=== PATIENT | male | born 1965 | race Hispanic/Latino ===

== ENCOUNTER 2017-06-18 15:23 | Inpatient (IN) | payer MEDICAID ==
[2017-06-18 17:03] LABS: BASO # 0.1 K/uL (0.0-0.2); BASO % 0.8 % (0.0-2.0); EOS # 0.5 K/uL (0.0-0.7); EOS % 5.7 % (0.0-4.0); HEMATOCRIT 45.3 % (35.0-51.0); LYMPH # 2.2 K/uL (1.0-4.3); LYMPH % 25.1 % (20.0-40.0); MEAN CORPUSCULAR HEMOGLOBIN 30.5 pg (27.0-31.0); MEAN CORPUSCULAR HGB CONC 33.9 g/dL (33.0-37.0); MEAN PLATELET VOLUME 7.8 fL (7.2-11.7); MONO # 0.8 K/uL (0.0-0.8); MONO % 9.3 % (0.0-10.0); NRBC % 0.1 % (0.0-2.0); RED CELL DISTRIBUTION WIDTH 13.8 % (11.5-14.5); WHITE BLOOD COUNT 8.7 K/uL (4.8-10.8)
[2017-06-18 17:15] LABS: RBC URINE 1 /hpf (0-3); URINE BILIRUBIN NEGATIVE (NEGATIVE); URINE BLOOD NEGATIVE (NEGATIVE); URINE COLOR Yellow (YELLOW); URINE GLUCOSE (UA) NORMAL (Normal); URINE KETONE TRACE mg/dL (NEGATIVE); URINE LEUKOCYTE ESTERASE NEG Leu/uL (Negative); URINE PROTEIN NEGATIVE (NEGATIVE); URINE UROBILINOGEN NORMAL mg/dL (0.2-1.0); WBC URINE 1 /hpf (0-5)
[2017-06-18 17:18] LABS: ALB/GLOB RATIO 1.3 (1.0-2.1); ALCOHOL SERUM < 10 mg/dl (0-10); ALKALINE PHOSPHATASE 93 U/L (38-126); ALT/SGPT 69 U/L (21-72); AST/SGOT 57 U/L (17-59); BILIRUBIN,TOTAL 0.6 mg/dL (0.2-1.3); BLOOD UREA NITROGEN 22 mg/dL (9-20); CALCIUM 8.7 mg/dl (8.6-10.4); CARBON DIOXIDE 27 mmol/L (22-30); CHLORIDE 99 mmol/L (98-107); GFR AFRICAN-AMERICAN > 60; GLUCOSE,RANDOM 92 mg/dL (75-110); POTASSIUM 4.5 mmol/L (3.6-5.2); SODIUM 135 mmol/L (132-148); TOTAL PROTEIN 6.9 g/dL (6.3-8.3)
[2017-06-18 18:14] VITALS: RESP 18
--- NOTE | 2017-06-18 19:02 | C.PDOC ---
History Of Present Illness 51 year old male with Hx of heroin abuse presents to the ED for detox, patient was pleasant and cooperative. Patient was prescreened before arriving to the ED , he admits to using 10-20 bags a day and his last use was [employer]. Otherwise, Patient denies any associated complaints. Time Seen by Provider: 06/18/17 16:43 Chief Complaint (Nursing): Substance Abuse History Per: Patient History/Exam Limitations: intoxication Onset/Duration Of Symptoms: Hrs Current Symptoms Are (Timing): Still Present Suicide/Self Injury Attempted (Context): None Modifying Factor(s): Other (Heroin) Associated Symptoms: denies: Suicidal Thoughts, Suicidal Plan Involuntary Hold By: None Recent travel outside of the [place]: No Additional History Per: Patient Past Medical History Reviewed: Historical Data, Nursing Documentation, Vital Signs Vital Signs: Last Vital Signs Temp 98.6 F 06/18/17 19:48 Pulse 80 06/18/17 19:48 Resp 18 06/18/17 19:48 BP 118/77 06/18/17 19:48 Pulse Ox 99 06/18/17 19:48 - Medical History PMH: No Chronic Diseases Denies: Diabetes, Hepatitis, HIV, HTN, Seizures, Sexually Transmitted Disease Surgical History: No Surg Hx Family History: States: Unknown Family Hx - Social History Hx Alcohol Use: Yes Hx Substance Use: Yes - Immunization History Hx Tetanus Toxoid Vaccination: Yes Hx Influenza Vaccination: No Hx Pneumococcal Vaccination: No Review Of Systems Constitutional: Negative for: Fever, Chills Cardiovascular: Negative for: Chest Pain, Palpitations Respiratory: Negative for: Cough, Shortness of Breath Gastrointestinal: Negative for: Nausea, Vomiting, Abdominal Pain Musculoskeletal: Negative for: Back Pain Skin: Negative for: Rash Neurological: Negative for: Weakness, Numbness Psych: Negative for: Suicidal ideation Physical Exam - Physical Exam Appears: Other (Tall, white male) Skin: Normal Color, Warm, Dry, No Other (No track layne) Head: Atraumatic, Normacephalic Eye(s): bilateral: Other (Pin point) Nose: No Discharge, No Deformity Oral Mucosa: Moist, No Drooling Throat: Normal, No Erythema, No Exudate Neck: Normal ROM, Supple Chest: Symmetrical Cardiovascular: Rhythm Regular, No Murmur Respiratory: Normal Breath Sounds, No Rales, No Rhonchi, No Wheezing Gastrointestinal/Abdominal: Soft, No Tenderness, No Guarding, No Rebound Back: No CVA Tenderness Extremity: Normal ROM, No Deformity, No Swelling Neurological/Psych: Oriented x3, Normal Speech, Normal Cognition Gait: Steady ED Course And Treatment - Laboratory Results Result Diagrams: 06/18/17 16:58 06/18/17 16:58 Lab Interpretation: Abnormal (+ opiates) O2 Sat by Pulse Oximetry: 96 (On RA) Pulse Ox Interpretation: Normal Reevaluation Time: 19:00 Reassessment Condition: Improved - Physician Consult Information Outcome Of Conversation: 190: d/w Crisis, ok to Detox Medical Decision Making Medical Decision Making: Impression : 51 y/o male prescreened for detox. Plan: * Blood work, UA ordered * Atarax 50 mg PO given * Desyrel 100 mg PO given * Imodium 2 mg PO given * Maalox 30 ml PO given * Zofran 4 mf PO given * Subutex 6 mg SL opiate abuse Disposition Doctor Will See Patient In The: Hospital Counseled Patient/Family Regarding: Studies Performed, Diagnosis - Disposition Disposition: HOSPITALIZED Disposition Time: 19:02 Condition: GOOD - Clinical Impression Clinical Impression: Opiate addiction - Scribe Statement The provider has reviewed the documentation as recorded by the Scribe Henrik Quiñones All medical record entries made by the Scribe were at my direction and personally dictated by me. I have reviewed the chart and agree that the record accurately reflects my personal performance of the history, physical exam, medical decision making, and the department course for this patient. I have also personally directed, reviewed, and agree with the discharge instructions and disposition.
--- NOTE | 2017-06-18 19:29 | PCM.BM ---
<Jolanta Min - Last Filed: 06/18/17 19:28> Treatment Plan Problems - Problems identified on initial assessmt potiential for opiate withdrawal Date Initiated: 06/18/17 Time Initiated: 19:28 Assessment reference: NA Status: Active Treatment assets and liabiliti Patient Assests: cooperative, ADL independent, physically healthy Patient Liabilities: substance abuse - Milieu Protocol Maintain good personal hygiene: daily Encourage regular showers, daily Remind patient to perform daily oral care, daily Assist patient to perform ADL's Maintain personal safety: every shift Educate patient to report safety concerns to staff, every shift Monitor environment for contraband/sharps Medication safety: Monitor for expected outcome, potential side effects: every shift, Assess barriers to learning: every shift, Assess readiness for medication education: every shift <Lorena Mansfield - Last Filed: 06/20/17 08:10> Family Contact Family involvement: Famliy/SO not involved Family contact: Patient declines to allow family contact at present - Goals for Treatment Patient goals for treatment: Complete detox and attend 12 step meetings. Discharge/Continuing Care - Education Needs Education Needs: Patient Medication, Patient Diagnosis/Disease Process, Patient Coping Skills, Patient Anger Management skills, Patient Placement options, Patient Community resources - Discharge Discharge Criteria: Free of agitation, No longer exhibiting s/s of withdrawal, Reduction of target symptoms Discharge to:: Home - Treatment Team Participation Patient/Family/SO Statement: 06/20/17 08:10 "I wanna go to AA meetings when I'm done..." Discussed with Family/SO: No Was Patient/Family/SO present at Treatment Team Meeting: Yes
[2017-06-18] MEDS ORDERED: Buprenorphine Hydrochloride 2 mg SL ONE ×2 (20:03→21:05)
[2017-06-18] MEDS ORDERED: Aluminum Hydroxide/Magnesium Hydroxide Susp (30 mL) PO PRN (20:06)
[2017-06-19] MEDS: Buprenorphine Hydrochloride 2 mg SL SCH (09:32)
--- NOTE | 2017-06-19 09:46 | PCM.PSYCH ---
Initial Psychiatric Evaluation - Initial Psychiatric Evaluation Type of Admission: Voluntary Legal Status: Capacity Chief Complaint (in patient's own words): 'I came here to get help.' History of Present Illness and Precipitating Events: Patient is a 51 y/o CM, single, unemployed and who lives [facility], with h/o opioid dependence came to the ED to get help in opioid detox. As per patient he had been using Heroin for 10 years. He is now injecting daily up to 10 bags, last abused yesterday. He denies any inpatient psychiatric hospitalization and denies any follow up with any psychiatrist. His last detox was at [facility] last year. His longest period of sobriety is for 9 months. He reports irritability and withdrawal symptoms i.e., sweating, headaches, anxiety, back and joint pains, nausea and abdominal cramps. He reports depressed mood, but denies any feelings of hopelessness or helplessness. He denies any suicidal ideation or homicidal ideation or any manic symptoms. He denies any auditory or visual hallucinations or any psychotic symptoms. He denies any other substance abuse. PMH None reported, NKA Current Medications: Active Medications Generic Name Dose Route Start Last Admin Trade Name Freq PRN Reason Stop Dose Admin Al Hydrox/Mg Hydrox/Simethicone 30 ml 06/18/17 20:06 Maalox 30 Ml PO TID PRN Indigestion / Heartburn Buprenorphine HCl 0 mg 06/19/17 10:00 06/19/17 09:32 Subutex SL 06/23/17 09:59 8 mg .TAPER NILDA Administration Taper Hydroxyzine HCl 50 mg 06/18/17 20:03 Atarax PO Q6H PRN Anxiety Ibuprofen 600 mg 06/18/17 20:03 Motrin Tab PO Q6H PRN Pain, moderate (4-7) Loperamide HCl 2 mg 06/18/17 20:06 Imodium PO Q8 PRN Diarrhea Ondansetron HCl 4 mg 06/18/17 20:06 Zofran Tab PO Q8 PRN Nausea/Vomiting Trazodone HCl 100 mg 06/18/17 20:03 Desyrel PO HS PRN Insomnia Past Psychiatric History - Past Psychiatric History Previous Treatment History: Inpatient Pertinent Medical Hx (Current Medical&Sleep Prob, Allergies): Allergies Allergy/AdvReac Type Severity Reaction Status Date / Time No Known Allergies Allergy Verified 06/18/17 15:57 No Known Home Med 06/18/17 Review of Systems - Review of Systems All systems: reviewed and no additional remarkable complaints except - Psychiatric Psychiatric: Anxiety, Irritability Mental Status Examination - Personal Presentation Personal Presentation: Looks stated age - Affect Affect: Constricted - Motor Activity Motor Activity: Calm - Reliability in Providing Information Reliability in Providing Information: Fair - Speech Speech: Organized - Mood Mood: Anxious - Formal Thought Process Formal Thought Process: No Impairment - Obsessions/Compulsions Obsessions: No Compulsions: No - Cognitive Functions Orientation: Person, Place, Situation, Time Sensorium: Alert Attention/Concentration: Attentive Abstract Thinking: [place] Estimate of Intelligence: Below average Judgement: Imparied, as evidence by: Poor judgement, Imparied, as evidence by: Lack of insight into illness, Intact, as evidence by: Insight regarding need for hospitalization - Risk Risk: Withdrawal, Diminished functioning - Limitations Limitations: Living alone DSM 5 DX - DSM 5 DSM 5 Diagnosis: Opioid use disorder severe Opioid withdrawal Depressive disorder - Recommended/Plan of Treatment Treatment Recommendations and Plan of Treatment: Opioid use disorder severe CBT Psychoeducation Supportive therapy, individual therapy Use AL for abstinence Opioid withdrawal CBT Psychoeducation Supportive therapy, individual therapy Clonidine when necessary Subutax taper PRN meds Depressive disorder CBT Psychoeducation Supportive therapy, group therapy, individual therapy Paxil 10 mg PO Daily Trazodone 100 mg by mouth daily at bedtime - Smoking Cessation Smoking Cessation Initiated: No
[2017-06-20] MEDS: Buprenorphine Hydrochloride 2 mg SL SCH (09:24)
--- NOTE | 2017-06-20 13:13 | PCM.PYCHPN ---
Psychiatric Progress Note - Psychiatric Progress Note Patient seen today, length of contact: 16 min Patient Chief Complaint: "Not good" Problems Identified/Issues Discussed: He is seen, chart reviewed and case discussed Improving slowly Support given, TX used No new sxs Fatigued, unsteady After care discussed Medication Change: Yes (detox changes daily) Medical Record Reviewed: Yes Mental Status Examination - Cognitive Function Orientation: Person, Place, Situation, Time Memory: Impaired Attention: Poor Concentration: Poor Association: WNL Fund of Knowledge: WNL - Mood Mood: Anxious - Affect Affect: Constricted - Speech Speech: Slurred - Formal Thought Process Formal Thought Process: No Impairment - Suicidal Ideation Suicidal Ideation: No - Homicidal Ideation Homicidal Ideation: No Goal/Treatment Plan - Goal/Treatment Plan Need for Continued Stay: Discharge may exacerbated symptoms, Severe functional impairment Progress Toward Problem(s) and Goals/Treatment Plan: Continue detox Support and TX Groups prn meds After care by counselors
[2017-06-21 06:36] VITALS: TEMP 97.5
[2017-06-21 09:24] VITALS: BP 135/87; PULSE 68; O2SAT 98
--- NOTE | 2017-06-21 09:37 | PCM.PYCHDC ---
Mental Status Examination - Mental Status Examination Orientation: Person, Place, Situation, Time Memory: Intact Mood: Depressed Affect: Constricted Speech: Appropriate Attention: WNL Concentration: WNL Association: WNL Fund of Knowledge: WNL Formal Thought Process: No Impairment Suicidal Ideation: No Current Homicidal Ideation?: No Discharge Summary - Discharge Note Reason for Hospitalization: Opioid Detox Opioid Withdrawal Opioid Use d/o-severe Consultations:: List each consultation separately and include: 1. Reason for request. 2. Findings. 3. Follow-up Summary of Hospital Course include:: 1. Description of specific treatment plan utilized for patients during their course of treatmen. 2. Summarize the time- course for resolution of acute symptoms and/or regressed behaviors. 3. Describe issues identified and worked on during hospitalization. 4. Describe medication utilized. 5. Describe medical problems identified and treated. 6. Reassessment of suicide risk Summary of Hospital Course: The pt was admitted and started on treatment with psychotherapy, support, psychoeducation and medications. ID and CBT used. The pt attended groups and activities All the risks and benefits of medications are discussed and the patient understood and agreed. The pt improved with the treatments provided, however the PT was was witnessed to be smoking a cigarette on the unit on 06/20. PT was administratively discharge, due to the incident. After care discussed with the patient. He was given last dose of subutex 4mg before discharge and discharge medications were sent to [facility] in [place] Pt plans to receive the Vivatrol shot and attend AA meetings after discharge - Final Diagnosis (DSM 5) Condition upon Discharge: GOOD DSM 5: Opioid use disorder severe Opioid withdrawal Depressive disorder Disposition: HOME/ ROUTINE Follow-up Treatment Plan: Continue below medications after discharge. Go to treatment center to receive Vivatrol shot and attend AA meetings in [place] Use relapse prevention skills Return to ER or call 911 if suicidal, homicidal or symptoms relapse. Stay away from alcohol and drugs. See primary doctor regularly and get labs. Prescriptions/Medication Reconciliation: PARoxetine [Paxil] 10 mg PO DAILY #30 tab traZODone [Desyrel] 100 mg PO HS PRN #30 tab PRN Reason: Insomnia
[2017-06-21] MEDS: Buprenorphine Hydrochloride 2 mg SL SCH (09:51)
== END 2017-06-21 10:15 | disposition home or self-care (01) | DRG 745 ==
LOC: C.ER 15:23 → C.7D 19:03
PROVIDERS: ADMIT Psychiatry & Neurology Psychiatry; ATTEND Psychiatry & Neurology Psychiatry
PROC: HZ52ZZZ Individual Psychotherapy for Substance Abuse Treatment, Cognitive-Behavioral (ICD-10-PCS; principal; 2017-06-18)
PROC: HZ56ZZZ Individual Psychotherapy for Substance Abuse Treatment, Psychoeducation (ICD-10-PCS; 2017-06-18)
PROC: HZ57ZZZ Individual Psychotherapy for Substance Abuse Treatment, Motivational Enhancement (ICD-10-PCS; 2017-06-18)
PROC: HZ2ZZZZ Detoxification Services for Substance Abuse Treatment (ICD-10-PCS; 2017-06-18)
DX: F11.23 Opioid dependence with withdrawal (principal); F17.210 Nicotine dependence, cigarettes, uncomplicated; F32.9 Major depressive disorder, single episode, unspecified